=== PATIENT | female | born 1950 | race Caucasian/White ===

== ENCOUNTER 2020-04-13 08:45 | Outpatient (CLI) | payer OTHER ==
[~2020-04-13 08:45] MED LIST: ASA325 MG; CALCIUM600 MG; CELEXA40 MG; CO Q-10100 MG; COREG CR40 MG; ENALAPRIL MALEAT5 MG; LUNESTA3 MG; OMEGA-31000 MG; PREVACID15 MG; SIMVASTATIN20 MG; VITAMIN D1000 UNIT
== END 2020-04-13 08:49 | disposition home or self-care (01) ==
LOC: RAD 08:45
PROVIDERS: ATTEND Urology
DX: R31.29 Other microscopic hematuria (principal); I87.8 Other specified disorders of veins

== ENCOUNTER → 2021-05-21 11:24 | Outpatient (CLI) | payer OTHER | END | disposition home or self-care (01) | LOC: NUCLEAR 11:15 | PROVIDERS: ATTEND Internal Medicine Rheumatology | DX: M81.0 Age-related osteoporosis without current pathological fracture (principal) ==